=== PATIENT | female | born 1975 | race Caucasian/White ===

== ENCOUNTER 2017-02-24 05:40 | Inpatient (IN) | payer OTHER ==
[~2017-02-24] VITALS: Ht 167.6 cm; Wt 125.0 kg
[~2017-02-24 05:40] MED LIST: GUAI100L6 PO; PREN1TAB60 PO
[2017-02-24] MEDS: LACTATED RINGERS 1,000 ML IV SCH ×10 (05:58→23:38)
[2017-02-24] MEDS ORDERED: SODIUM CITRATE/CITRIC ACID 30 ML UDC PO ONE (06:00)
[2017-02-24] MEDS ORDERED: METOCLOPRAMIDE 5 MG/ML, 2ML IV ONE (06:00)
[2017-02-24] MEDS ORDERED: LACTATED RINGERS 1,000 ML IVBOLUS ONE (06:00)
[2017-02-24] MEDS ORDERED: NEWBORN KIT ONE (06:28)
[2017-02-24] MEDS ORDERED: SODIUM CITRATE/CITRIC ACID 30 ML UDC ONE (06:28)
[2017-02-24] MEDS ORDERED: METOCLOPRAMIDE 5 MG/ML, 2ML ONE (06:28)
[2017-02-24] MEDS ORDERED: OXYTOCIN 30U/ 0.9% NaCL 500ML 500 ML ONE (07:03)
[2017-02-24] MEDS ORDERED: FENTANYL PF 100 MCG/2ML ONE ×2 (07:13→07:33)
[2017-02-24] MEDS ORDERED: HYDROmorphone 2 MG/ML, 1ML ONE (07:14)
[2017-02-24] MEDS ORDERED: KETOROLAC 30 MG/1 ML ONE (07:33)
[2017-02-24] MEDS ORDERED: ONDANSETRON 2MG/ML, 2ML ONE (07:33)
[2017-02-24] MEDS ORDERED: CEFAZOLIN 1,000 MG ONE (07:33)
[2017-02-24] MEDS: OXYTOCIN 30U/ 0.9% NaCL 500ML 500 ML IV SCH ×4 (07:38→17:38)
[2017-02-24] MEDS ORDERED: METHYLERGONOVINE 0.2 MG/ML IM PRN (08:00)
[2017-02-24] MEDS ORDERED: CARBOPROST TROMETHAMINE 250 MCG/ML, 1ML IM PRN (08:00)
[2017-02-24] MEDS ORDERED: MISOPROSTOL 200 MCG TABLET PR PRN (08:00)
[2017-02-24] MEDS ORDERED: ONDANSETRON 2MG/ML, 2ML IV PRN (08:00)
[2017-02-24] MEDS ORDERED: ACETAMINOPHEN 325 MG TABLET PO PRN (08:00)
[2017-02-24] MEDS ORDERED: OXYcodone/APAP 5/325MG TABLET PO PRN (08:00)
[2017-02-24] MEDS ORDERED: IBUPROFEN 600 MG TABLET PO PRN (08:00)
[2017-02-24] MEDS ORDERED: MEASLES,MUMPS&RUBELLA VACC/PF 0.5 ML SQ-VACC PRN (08:00)
[2017-02-24] MEDS ORDERED: DIPH,PERTUSS(ACELL),TET VAC/PF NC IM-VACC PRN (08:00)
[2017-02-24] MEDS: PRENATAL VIT/IRON/FA 1 EACH TABLET PO SCH (09:00)
[2017-02-24] MEDS ORDERED: MORPHINE SULFATE 4 MG/ML, 1ML IVPush PRN (09:00)
[2017-02-24 11:28] VITALS: BP 128/84
[2017-02-24] MEDS: KETOROLAC 30 MG/1 ML IV SCH ×3 (11:45→22:26)
[2017-02-24 15:21] VITALS: BP 128/86
[2017-02-24] MEDS: OXYcodone/APAP 5/325MG TABLET PO PRN ×2 (15:52→20:38)
[2017-02-24 19:35] VITALS: BP 126/81
[2017-02-24] MEDS ORDERED: CETIRIZINE 10 MG TABLET PO PRN (20:30)
[2017-02-25 00:18] VITALS: BP 113/69
[2017-02-25] MEDS: OXYcodone/APAP 10/325MG TABLET PO PRN ×5 (00:25→19:39)
[2017-02-25] MEDS: OXYTOCIN 30U/ 0.9% NaCL 500ML 500 ML IV SCH ×4 (01:58→23:38)
[2017-02-25] MEDS: LACTATED RINGERS 1,000 ML IV SCH ×8 (02:00→23:38)
[2017-02-25 04:50] VITALS: BP 111/76
[2017-02-25] MEDS: KETOROLAC 30 MG/1 ML IV SCH ×4 (04:52→23:11)
[2017-02-25] MEDS: DOCUSATE 100 MG CAPSULE PO PRN ×2 (08:01→19:39)
[2017-02-25] MEDS: PRENATAL VIT/IRON/FA 1 EACH TABLET PO SCH (08:01)
[2017-02-25 09:00] VITALS: BP 126/85
[2017-02-25 21:00] VITALS: BP 127/91
[2017-02-26] MEDS: OXYcodone/APAP 10/325MG TABLET PO PRN ×2 (01:32→05:37)
[2017-02-26] MEDS ORDERED: OXYC-302 PO (04:45)
[2017-02-26] MEDS ORDERED: IBUP-1222 PO (04:46)
[2017-02-26] MEDS: KETOROLAC 30 MG/1 ML IV SCH (05:36)
[2017-02-26] MEDS: LACTATED RINGERS 1,000 ML IV SCH ×2 (07:38→09:38)
[2017-02-26 08:15] VITALS: BP 131/91
[2017-02-26] MEDS: PRENATAL VIT/IRON/FA 1 EACH TABLET PO SCH (09:00)
[2017-02-26] MEDS: OXYTOCIN 30U/ 0.9% NaCL 500ML 500 ML IV SCH (09:38)
== END 2017-02-26 10:15 | disposition home or self-care (01) | DRG 765 ==
LOC: LDIP 05:40 → 2NW 10:50
PROVIDERS: ADMIT Obstetrics & Gynecology Maternal & Fetal Medicine; ATTEND Obstetrics & Gynecology Maternal & Fetal Medicine
PROC: 10D00Z1 Extraction of Products of Conception, Low, Open Approach (ICD-10-PCS; principal; 2017-02-24)
DX: O34.219 Maternal care for unspecified type scar from previous cesarean delivery (principal); Z68.41 Body mass index [BMI] 40.0-44.9, adult; O99.214 Obesity complicating childbirth; E66.9 Obesity, unspecified; Z37.0 Single live birth; Z23 Encounter for immunization
CPT/HCPCS: 36415; 82803; 85025; 86850; 86900; J0690; J1170; J1885; J2405; J3010; J2590; J2765; J7120